=== PATIENT | female | born 1980 | race Caucasian/White ===

== ENCOUNTER 2017-03-09 17:40 | Inpatient (IN) | payer OTHER ==
[2017-03-09] MEDS ORDERED: SODIUM CHLORIDE 0.9% 500 ML IV STA (19:11)
[2017-03-09 19:53] LABS: Basophils # (A) 0.1 k/uL (0-0.2); Basophils % (A) 0 %; CH 31.9; CHCM 36.9; Eosinophils # (A) 0.2 k/uL (0-0.7); Eosinophils % (A) 1 %; HCT 41.5 % (34.0-46.0); HDW 2.97; HGB 14.5 gm/dL (11.4-16.0); Luc # (Auto) 0.11; Luc % (Auto) 1; Lymphocytes # (A) 2.2 k/uL (1.0-4.8); Lymphocytes % (A) 13 %; MCH 30.4 pg (25.0-35.0); MCHC 34.9 g/dL (31.0-37.0); Mean Platelet Volume 7.1; Monocytes # (A) 0.5 k/uL (0-1.0); Monocytes % (A) 3 %; Neutrophils # (A) 14.7 k/uL (1.3-7.7); Neutrophils % (A) 83 %; RBC 4.77 m/uL (3.80-5.40); RDW 14.1 % (11.5-15.5); WBC 17.8 k/uL (3.8-10.6); WBC (Perox) 18.12
[2017-03-09 20:02] LABS: Partial Thromboplastin Time 24.3 sec (22.0-30.0)
[2017-03-09 20:03] LABS: ALT 34 U/L (9-52); AST 22 U/L (14-36); Alkaline Phosphatase 82 U/L (38-126); Anion Gap 15 mmol/L; Blood Urea Nitrogen 13 mg/dL (7-17); Calcium 9.6 mg/dL (8.4-10.2); Carbon Dioxide 22 mmol/L (22-30); Chloride 101 mmol/L (98-107); Glucose 94 mg/dL (74-99); Non-African American GFR(MDRD) >60 (>60 ml/min/1.73 sqM); Potassium 4.3 mmol/L (3.5-5.1); Sodium 138 mmol/L (137-145); Total Bilirubin 0.4 mg/dL (0.2-1.3); Total Protein 7.7 g/dL (6.3-8.2)
[2017-03-09 20:07] LABS: Creatine Kinase 23 U/L (30-135)
[2017-03-09 20:20] LABS: Creatine Kinase MB 0.4 ng/mL (0.0-2.4); Troponin I <0.012 ng/mL (0.000-0.034)
--- NOTE | 2017-03-09 20:31 | CT ---
EXAMINATION TYPE: CT brain wo con DATE OF EXAM: 03/09/2017 COMPARISON: NONE HISTORY: Left sided numbness. CT DLP: 1171.00 mGycm. Automated Exposure Control for Dose Reduction was Utilized. TECHNIQUE: CT scan of the head is performed without contrast. FINDINGS: Ventricles have normal size. There is no mass effect nor midline shift. There is no sign of intracranial hemorrhage. The calvarium appears intact. CONCLUSION: Normal unenhanced head CT scan.
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
[2017-03-09] MEDS ORDERED: NALOXONE 0.4 MG/ML 1 ML VIAL IV PRN (21:00)
[2017-03-09] MEDS: SODIUM CHLORIDE 0.9% 1,000 ML IV SCH (21:15)
[2017-03-09 22:30] VITALS: BMI 43.7
[2017-03-09 22:36] LABS: Hemoglobin A1C 4.8 % (4.2-6.1)
[2017-03-10] MEDS: IBUPROFEN 800 MG TAB PO PRN ×3 (00:04→18:12)
[2017-03-10] MEDS: METHOCARBAMOL 750 MG TAB PO PRN ×2 (01:02→21:02)
[2017-03-10 08:35] LABS: Glucose,Whole Blood 118 mg/dL (75-99)
[2017-03-10] MEDS: INSULIN LISPRO (humaLOG) 300 UNIT/3 ML VIAL SQ SCH ×4 (08:45→21:37)
[2017-03-10] MEDS: metFORMIN 500 MG TAB PO SCH ×2 (10:14→21:43)
[2017-03-10] MEDS: GABAPENTIN 300 MG CAP PO SCH ×2 (10:15→21:37)
[2017-03-10] MEDS: ENOXAPARIN 40 MG/0.4 ML SYRINGE SQ SCH (10:17)
[2017-03-10 12:13] LABS: Glucose,Whole Blood 85 mg/dL (75-99)
[2017-03-10] MEDS ORDERED: NON-FORMULARY DRUG (Dextroamphetamine/Amphetamine [Adderall] 20 MG) PO SCH (12:45)
--- NOTE | 2017-03-10 13:38 | XR ---
Cervical spine HISTORY: Neck and arm pain, left hemiparesis 5 views of the spine No comparisons There is no evident foraminal encroachment. Spondylosis is present at C5-6 with associated loss of di sc height, minimal retrolisthesis grade 1 C5-6, anterolisthesis grade 1 C4-5. Prevertebral soft tissu es are normal. IMPRESSION: Degenerative disc disease. Consider cervical MRI.
--- NOTE | 2017-03-10 13:40 | CT ---
EXAMINATION TYPE: CT cervical spine wo con DATE OF EXAM: 03/10/2017 COMPARISON: NONE HISTORY: 37-year-old female left-sided weakness and prior neck injury TECHNIQUE: Contiguous axial scanning of the spine without IV contrast. Coronal and sagittal reconstru ctions performed. CT DLP: 639.5 mGycm Automated exposure control for dose reduction was used. FINDINGS: There is or reversal of the normal cervical lordosis but with preserved alignment. No craniocervical junction abnormality, predental space widening, or prevertebral soft tissue swellin g. Degenerative disc disease with disc osteophyte complex formation, disc space narrowing at C5-C6 and C 6-C7. Corresponding uncovertebral joint arthropathy at this level. At C5-C6, changes result in mild spinal canal stenosis with superimposed left paracentral disc protru shalini. This probably abuts the ventral cord. Assessment of the spinal canal from C6-C7 and below limited due to artifact from patient's shoulders. No significant neuroforaminal stenosis. IMPRESSION: 1. DEGENERATIVE DISC DISEASE AND UNCOVERTEBRAL JOINT ARTHROPATHY AT C5-C6 AND C6-C7. 2. REVERSAL OF THE NORMAL CERVICAL LORDOSIS HERE WITHOUT MALALIGNMENT. 3. SUPERIMPOSED LEFT PARACENTRAL DISC HERNIATION AT C5-C6 CAUSES MILD SPINAL CANAL STENOSIS AND PROBA LINDA ABUTS THE VENTRAL CORD. 4. NO SIGNIFICANT NEURAL FORAMINAL STENOSIS.
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
[2017-03-10 16:56] LABS: Glucose,Whole Blood 90 mg/dL (75-99)
[2017-03-10] MEDS: ASPIRIN 81 MG PO SCH (18:32)
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
--- NOTE | 2017-03-10 20:21 | US ---
EXAMINATION TYPE: US carotid duplex BILAT DATE OF EXAM: 03/10/2017 COMPARISON: NONE CLINICAL HISTORY: Left-sided numbness. EXAM MEASUREMENTS: RIGHT: Peak Systolic Velocity (PSV) cm/sec ----- Right CCA: 71.1 ----- Right ICA: 79.8 ----- Right ECA: 66.7 ICA/CCA ratio: 1.1 RIGHT: End Diastole cm/sec ----- Right CCA: 20.2 ----- Right ICA: 21.7 ----- Right ECA: 8.6 LEFT: Peak Systolic Velocity (PSV) cm/sec ----- Left CCA: 79.0 ----- Left ICA: 101.6 ----- Left ECA: 106.4 ICA/CCA ratio: 1.3 LEFT: End Diastole cm/sec ----- Left CCA: 16.0 ----- Left ICA: 49.9 ----- Left ECA: 11.1 VERTEBRALS (direction of flow): Right Vertebral: Antegrade Left Vertebral: Antegrade No significant stenosis visualized IMPRESSION: There is antegrade flow in the vertebral arteries. The images and measurements suggest c lose to 0% stenosis in both internal carotid arteries. Criteria for Assigning % of Stenosis / Diameter reduction (Estimation based on the indirect measurements of the internal carotid artery velocities (ICA PSV). 1. Normal (no stenosis)=ICA PSV < 125 cm/s: ratio < 2.0: ICA EDV<40 cm/s. 2. Less than 50% stenosis=ICA PSV < 125 cm/s: ratio < 2.0: ICA EDV<40 cm/s. 3. 50 to 69% stenosis=ICA PSV of 125 to 230 cm/s: ration 2.0 ? 4.0: ICA EDV 40-100 cm/s. 4. Greater than 70% stenosis to near occlusion= ICA PSV > 230 cm/s: ratio > 4.0: ICA EDV > 100 cm/s. 5. Near occlusion= ICA PSV velocities may be low or undetectable: variable ratio and ICA EDV. 6. Total occlusion=unable to detect flow.
[2017-03-10 21:22] LABS: Glucose,Whole Blood 90 mg/dL (75-99)
[2017-03-10] MEDS ORDERED: HYDROcodone/APAP 5-325MG 1 EACH TAB PO STA (21:31)
[2017-03-10 23:59] VITALS: RESP 18
[2017-03-11] MEDS: SODIUM CHLORIDE 0.9% 1,000 ML IV SCH (00:41)
[2017-03-11] MEDS ORDERED: HYDROcodone/APAP 5-325MG 1 EACH TAB PO PRN (06:18)
[2017-03-11] MEDS ORDERED: LORazepam 1 MG TAB PO STA (07:12)
[2017-03-11 07:16] LABS: Glucose,Whole Blood 85 mg/dL (75-99)
[2017-03-11] MEDS: INSULIN LISPRO (humaLOG) 300 UNIT/3 ML VIAL SQ SCH ×3 (09:08→17:11)
[2017-03-11] MEDS: ENOXAPARIN 40 MG/0.4 ML SYRINGE SQ SCH (09:12)
[2017-03-11] MEDS: ASPIRIN 81 MG PO SCH (09:12)
[2017-03-11] MEDS: metFORMIN 500 MG TAB PO SCH (09:13)
[2017-03-11] MEDS: GABAPENTIN 300 MG CAP PO SCH (09:13)
--- NOTE | 2017-03-11 09:30 | MR ---
EXAMINATION TYPE: MR brain/cspine wo DATE OF EXAM: 03/11/2017 COMPARISON: CT 03/09/2017 and 03/10/2017 HISTORY: 37-year-old female with left-sided numbness TECHNIQUE: Multiplanar, multisequence images of the brain and brainstem were acquired without IV con trast. Diffusion weighted imaging is performed. Subsequently, multiplanar, multisequence images of th e cervical spine are obtained. FINDINGS: BRAIN: No evidence for acute infarction, hemorrhage, mass, mass effect, midline shift, herniation, effacemen t of basal cisterns, or extra-axial fluid collection. The ventricles and sulci are age-appropriate. Major intracranial flow voids are intact. T2/FLAIR weighted sequences show a nonspecific punctate 3 mm focus of bright signal in the inferior s ubcortical right frontal lobe, axial image 15. Post contrast images demonstrate no evidence of pathologic enhancement. Dural venous sinuses are pat ent. Small polyp or mucosal retention cyst along the floor of the right maxillary sinus. Leftward nasal se ptal deviation. Globes appear intact. CERVICAL SPINE: No craniocervical junction abnormality, predental space widening, or prevertebral soft tissue swellin g. No suspicious bone marrow replacement. Reversal of the normal cervical lordosis with preserved alignment. There is mild multilevel degenerative disc disease with variable mild disc desiccation and posterior disc bulging. Scattered mild facet and uncovertebral joint arthropathy is also present. At C2-C3, mild uncovertebral joint and facet degenerative change without canal or foraminal stenosis. At C3-C4, mild facet and uncovertebral joint degenerative change without significant canal or foramin al stenosis. At C4-C5, similar mild degenerative changes are present without significant canal or foraminal stenos is. At C5-C6, mild facet arthropathy and mild uncovertebral joint spurring. There is a diffuse disc bulge with extension into the ventral spinal canal causing mild overall spinal canal stenosis with abutmen t and slight flattening of the ventral cord. No uzma cord compression. At C6-C7, mild uncovertebral joint and facet arthropathy and mild posterior disc bulge. This minimall y narrows the spinal canal. No significant neuroforaminal stenosis. At C7-T1, mild facet arthropathy without canal or foraminal stenosis. In addition, at T3-T4, there is a right paracentral disc protrusion which appears to abut the right l ateral ventral cord, sagittal image 7. No spinal canal stenosis or neuroforaminal stenosis. No T2 weighted cord signal abnormality seen. No prevertebral or paravertebral soft tissue abnormality identified. COMBINED IMPRESSION: BRAIN: 1. A solitary punctate 3 mm bright signal focus in the subcortical right frontal lobe is of questiona ble clinical significance. If concern for early demyelinating process, follow-up can be performed. 2. Otherwise, no intracranial abnormality seen. CERVICAL SPINE: 1. Multilevel degenerative disc disease along with mild facet and uncovertebral joint arthropathy. 2. Diffuse bulging disc at C5-C6 contributes to a mild spinal canal stenosis with disc abutting and s lightly flattening the ventral cord at this level. No uzma cord compression. 3. No significant neural foraminal stenosis seen. 4. Apparent right paracentral disc protrusion at T3-T4 abutting the right lateral ventral cord withou t uzma canal compromise.
[2017-03-11 09:41] LABS: Cholesterol 150 mg/dL (<200); HDL Cholesterol 40 mg/dL (40-60)
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
--- NOTE | 2017-03-11 11:18 | ECHOF ---
Referral Reason:Left-sided numbness MEASUREMENTS -------- HEIGHT: 165.1 cm WEIGHT: 119.3 kg BP: IVSd: 1.0 cm (0.6 - 1.1) LVIDd: 4.4 cm (3.9 - 5.3) LVPWd: 1.0 cm (0.6 - 1.1) IVSs: 1.4 cm LVIDs: 2.9 cm LVPWs: 1.5 cm Ao Diam: 2.9 cm (2.0 - 3.7) AV Cusp: 1.8 cm (1.5 - 2.6) LA Diam: 3.5 cm (2.7 - 3.8) MV EXCURSION: 11.800 mm (> 18.000) MV EF SLOPE: 71 mm/s (70 - 150) EPSS: 0.6 cm MV E Usman: 0.88 m/s MV DecT: 126 ms MV A Usman: 0.90 m/s MV E/A Ratio: 0.97 RAP: 5.00 mmHg RVSP: 9.86 mmHg FINDINGS -------- Sinus rhythm. This was a technically good study. The left ventricular size is normal. Left ventricular wall thickness is normal. Overall left ventricular systolic function is normal with, an EF between 55 - 60 %. The right ventricle is normal in size and function. The left atrium is normal in size. The right atrium is normal in size. The aortic valve is trileaflet, and appears structurally normal. No aortic stenosis or regurgitation. The mitral valve leaflets are mildly thickened. There is trace mitral regurgitation. Trace tricuspid regurgitation present. The right ventricular systolic pressure, as measured by Doppler, is 9.86mmHg. Pulmonic valve appears structurally normal. The aortic root size is normal. The pericardium is normal. CONCLUSIONS -------- 1. Sinus rhythm. 2. The mitral valve leaflets are mildly thickened. 3. There is trace mitral regurgitation. 4. Trace tricuspid regurgitation present. 5. The right ventricular systolic pressure, as measured by Doppler, is 9.86mmHg. 6. Pulmonic valve appears structurally normal. 7. The aortic root size is normal. 8. The pericardium is normal. 9. This was a technically good study. 10. The left ventricular size is normal. 11. Left ventricular wall thickness is normal. 12. Overall left ventricular systolic function is normal with, an EF between 55 - 60 %. 13. The right ventricle is normal in size and function. 14. The left atrium is normal in size. 15. The right atrium is normal in size. 16. The aortic valve is trileaflet, and appears structurally normal. No aortic stenosis or regurgitation. LEATHER SOFTENER: Danae Tyson RDCS
[2017-03-11 12:35] LABS: Glucose,Whole Blood 94 mg/dL (75-99)
[2017-03-11 17:14] LABS: Glucose,Whole Blood 91 mg/dL (75-99)
[2017-03-11 19:20] VITALS: BP 155/99; PULSE 97; TEMP 97.9
[2017-03-12] MEDS ORDERED: predniSONE 20 MG TAB PO SCH (09:00)
== END 2017-03-11 18:43 | disposition home or self-care (01) | DRG 552 ==
LOC: EC 17:40 → 4MS4W 21:06
PROVIDERS: ADMIT Hospitalist; ATTEND Hospitalist
DX: M50.122 Cervical disc disorder at C5-C6 level with radiculopathy (principal); G81.90 Hemiplegia, unspecified affecting unspecified side; Z68.41 Body mass index [BMI] 40.0-44.9, adult; E66.01 Morbid (severe) obesity due to excess calories; E28.2 Polycystic ovarian syndrome; F90.9 Attention-deficit hyperactivity disorder, unspecified type; E04.1 Nontoxic single thyroid nodule; E11.9 Type 2 diabetes mellitus without complications; R20.0 Anesthesia of skin; Z79.899 Other long term (current) drug therapy; Z79.84 Long term (current) use of oral hypoglycemic drugs; Z80.1 Family history of malignant neoplasm of trachea, bronchus and lung; Z87.891 Personal history of nicotine dependence
CPT/HCPCS: 36415; 70450; 70551; 72050; 72125; 72141; 80053; 80061; 82550; 82553; 83036; 84484; 85025; 85610; 85730; 93005; 93306; 93880; 96360; 99285

== ENCOUNTER 2017-08-17 09:11 | Day surgery (SDC) | payer OTHER ==
[2017-08-12 08:52] VITALS: BMI 42.4
[~2017-08-17 09:11] MED LIST: LACTATED RINGERS 1,000 ML IV ONE
[2017-08-17 10:41] VITALS: RESP 16; TEMP 98.1
[2017-08-17] MEDS ORDERED: LIDOCAINE 1% 20 ML VIAL (10MG/ML) FOR IV START INTRADERMA ONE (10:41)
--- NOTE | 2017-08-17 11:00 | P.PCN ---
Date of Procedure: 08/17/17 Procedure(s) Performed: Preoperative diagnosis: Multiple sclerosis Post operative diagnoses: Multiple sclerosis Anesthesia local infiltration with lidocaine 1% 2 mL. ,and moderate sedation with IV Versed 2 mg and fentanyl 100 g Condition: stable Complication: none. Description of the procedure procedure risk and benefits discussed with the patient and family, consent signed. Patient and the procedure area placed in lateral position back prepped with chlorhexidine 3 times been local infiltration of the skin and subcutaneous tissue with lidocaine 1% 2 mL for skin and subcu interstitial frustrations at L4 5 levels then 22-gauge 5 inches long ,Quincke-type needle advanced slowly , at L4- 5 interlaminar space there was positive cerebrospinal fluid which was clear, no heme, no paresthesia , total of 9 ML of clear cerebrospinal fluid collected in 4 different tubes 2-2- 1/2 mL in each, then the needle removed and a Band-Aid applied and patient tolerated the procedure well without any complications.
[2017-08-17] MEDS ORDERED: IV FLUID CONTINUATION 1,000 ML IV ONE (11:31)
[2017-08-17 11:36] VITALS: BP 129/80; PULSE 89
[2017-08-17 13:20] LABS: T4, Free (Free Thyroxine) 0.81 ng/dL (0.78-2.19)
[2017-08-17 13:31] LABS: Glucose,CSF 56 mg/dL (40-70); Total Protein,CSF 36 mg/dL (12-60)
[2017-08-17 14:36] LABS: Appearance,CSF Clear; CSF Tube Number 4; Red Blood Cell,CSF 0 u/L (0-10)
[2017-08-17 14:37] LABS: Nucleated Cells, CSF 1 u/L (0-5)
[2017-08-17 17:19] LABS: Rheumatoid Factor <4 IU/mL (0-15)
[2017-08-17 17:21] LABS: Anti-DNA, DS unit <1.0 IU/mL; DNA Double-Stranded NEGATIVE (NEGATIVE); RNP 0.2 AI
[2017-08-18 03:54] LABS: Angiotensin-1 Converting Enz. 32 U/L (8-52)
[2017-08-18 14:40] LABS: IgG - CSF 1.5 mg/dL (0.0 - 3.4); IgG/Albumin Index (CSF) 0.44 (0.00 - 0.77)
[2017-08-19 09:07] LABS: VDRL, Qualitative CSF Nonreactive (Nonreactive)
[2017-08-20 09:14] LABS: Lyme IgG/IgM 0.1 Index
== END 2017-08-17 12:03 | disposition home or self-care (01) ==
LOC: ORPAIN 09:11
PROVIDERS: ATTEND Specialist
DX: G35 Multiple sclerosis (principal); Z91.09 Other allergy status, other than to drugs and biological substances
CPT/HCPCS: 81025; 87476; 86592; 86235 ×3; 84439; 88108; 84157; 82945; 82040; 82042; 82784; 83916; 82164 ×2; 83873; 84443; 84450; 84460; 86431; 89050; 86618; 86780; 86038; 86225; 62270; J2250; J2001; J3010; 85613; 85730

== ENCOUNTER → 2017-08-19 | Day surgery (SDC) | payer OTHER ==
[~2017-08-19] MED LIST changes: -LACTATED RINGERS 1,000 ML IV ONE; +LACTATED RINGERS 1,000 ML IV SCH; +MIDAZOLAM 2 MG/2 ML VIAL IVP NR; +SODIUM CHLORIDE 0.9% 500 ML in EMPTY BAG 1 BAG IV PRN; +fentaNYL (PF) 50 MCG/ML 2 ML AMP IVP NR; +fentaNYL (PF) 50 MCG/ML 5 ML AMP IVP NR
[2017-08-19 12:30] VITALS: PULSE 92; RESP 16; TEMP 98.3
--- NOTE | 2017-08-19 13:21 | P.PCN ---
Date of Procedure: 08/19/17 Procedure(s) Performed: Operation= epidural blood patch. preoperative diagnosis= post dural puncture headache. Post operative diagnoses= post dural puncture headache. Anesthesia= moderate sedation with Versed 2 mg ,and fentanyl 100 g ,and local infiltration with lidocaine 1% 3 mL. Condition= stable. Complications= none. Indication for the procedure= this patient had diagnostic lumbar puncture done 2 days ago, for diagnostic purpose, the yesterday , patient started complaining of severe positional headache, improved with the supine position and increased with the sitting and standing position, and she is diagnosed with post dural puncture headache, there is no focal neurological deficit, no fever, , and no neck stiffness, patient is a good candidate to have epidural blood patch, because the conservative treatment failed, risks and benefits of the procedure discussed with the patient and agreed with proceeding, Description of the procedure= patient in sitting position, back lumbar area prepped with chlorhexidine x3 times then the back draped , then L5 S1 interlaminar space local infiltration of the skin and subcu tissues with lidocaine 1% 3 mL, then 18-gauge Tuohy needle, advanced at the L5-S1 interlaminar space, as positive loss of resistance to normal saline, was no heme and no paresthesia, no cerebrospinal fluid, then after that 18 mL of autologous blood taken under strict sterile technique from the right antecubital area was prepped with the chlorhexidine 3 times, and using Angiocath 20 ML of the block taken from the antecubital vein under strict sterile technique injected in the epidural space after negative aspiration for heme or cerebrospinal fluid, and there was no paresthesia, and after 18 ML of the blood injected in the epidural space and headache improved, and patient tolerated the procedure well without any complication and patient discharged home after discharge criteria met .
[2017-08-19 15:24] VITALS: BP 123/64
== END ==
LOC: PROCWHC3 11:59
PROVIDERS: ATTEND Specialist
DX: G97.1 Other reaction to spinal and lumbar puncture (principal)
CPT/HCPCS: 96360; 96374; 96375; 62273; J2250; J3010

== ENCOUNTER → 2018-12-23 | Outpatient (CLI) | payer OTHER ==
--- NOTE | 2018-12-25 12:40 | MR ---
EXAMINATION TYPE: MR brain/cspine wo/w DATE OF EXAM: 12/23/2018 COMPARISON: 03/11/2017 HISTORY: MS, recent right eye vision loss TECHNIQUE: Multiplanar, multisequence images of the brain, brainstem and cervical spine is performed without and with IV contrast, utilizing 12 mL intravenous Gadavist . FINDINGS: BRAIN: Diffusion weighted images demonstrate no evidence of a recent infarct or other diffusion abnor mality. There is no extra-axial fluid collection. Given slice selection the previously seen 3 mm focus of white matter change within the right frontal subcortical white matter seen on the prior exam of 03/11/2017 definitively is not visualized. A solita ry new punctate 3 mm periventricular focus is seen on the right and axial FLAIR fat-sat image 20. The ventricular system and cisternal spaces are normal in size and appearance. The brain volume is a ge appropriate. Midline structures demonstrate normal morphology. The craniocervical junction appears within normal limits. The dural venous sinuses appear patent. The visualized sinuses are clear and the globes are i ntact. Again there is leftward nasal septal deviation. Unchanged maxillary polyps or mucosal retentio n cysts, one within each maxillary sinus. There is very subtle enhancement of the both optic nerves, right greater than left. No other abnormal intracranial enhancement is seen. CERVICAL SPINE: Vertebral body heights of the cervical spine are maintained as is alignment. Multilevel disc desiccat ion is seen. No abnormal signal is seen of the spinal cord. No abnormal enhancement of the spinal cor d or of the cervical spine. Bone marrow signal is within normal limits. C2-C3: Mild uncovertebral hypertrophy and facet arthropathy are seen as well as a small posterior dis c osteophyte complex without significant neural foraminal narrowing or spinal canal stenosis. C3-C4: Mild facet arthropathy and uncovertebral hypertrophy as well as a broad-based disc bulge resul ting in minimal bilateral neural foraminal narrowing without spinal canal stenosis. C4-C5: Small central disc osteophyte complex, uncovertebral hypertrophy and facet arthropathy result in minimal bilateral neural foraminal narrowing and slight narrowing of the ventral subarachnoid spac e without significant spinal canal stenosis. C5-C6: There is a small central disc herniation superimposed on a broad-based disc bulge examination with facet arthropathy and ligamentum flavum buckling creating mild spinal canal stenosis and mild bi lateral neural foraminal narrowing. Findings have progressed from the prior. C6-C7: There is a broad-based disc bulge and uncovertebral hypertrophy as well as minimal facet arthr opathy creating mild bilateral neural foraminal narrowing and mild spinal canal stenosis. C7-T1: No significant disc disease, spinal canal stenosis or neural foraminal narrowing. Mild facet a rthropathy. IMPRESSION: 1. Solitary new white matter change in the right periventricular region without abnormal enhancement to suggest active demyelination. 2. Nonvisualization of the previously seen right frontal white matter change secondary to small size and slice selection on the current exam. This was a definitive finding on the prior. 3. No abnormal signal or enhancement of the spinal cord. 4. Progression of degenerative disc disease throughout the cervical spine, overall mild in degree wit h a new small central disc herniation at C5-C6 creating mild spinal canal stenosis. Degenerative disc disease at C6-C7 also creates mild spinal canal stenosis.
== END | disposition home or self-care (01) ==
LOC: RADMRIMAIN 16:39
PROVIDERS: ATTEND Psychiatry & Neurology Neurology
DX: M48.02 Spinal stenosis, cervical region (principal); M50.222 Other cervical disc displacement at C5-C6 level; M50.323 Other cervical disc degeneration at C6-C7 level; G35 Multiple sclerosis; R90.89 Other abnormal findings on diagnostic imaging of central nervous system
CPT/HCPCS: 70553; 72156; A9585

== ENCOUNTER → 2019-12-26 | Outpatient (CLI) | payer OTHER ==
--- NOTE | 2019-12-26 18:58 | MR ---
EXAMINATION TYPE: MR brain wo/w con DATE OF EXAM: 12/26/2019 COMPARISON: 03/11/2017 and 12/15/2018 HISTORY: 39-year-old female with left side weakness, double vision, R/O MS, compare to prior MR 2019 TECHNIQUE: Multiplanar, multisequence images of the brain and brainstem is performed without and with utilizing 11.5 mL intravenous Gadavist gadolinium contrast. Demyelinating disease protocol with add itional Sagittal Flair sequence performed. FINDINGS: T2 Lesions Present : Yes Approximate Number of Lesions: 2 in the right cerebral hemisphere Locations Identified : Right petersen radiata and subcortical inferior right frontal lobe Size of Reference Lesion(s): 1. 4 mm inferior subcortical right frontal lobe, axial image 14 and sagittal image 24. 2. 4 mm right petersen radiata, axial image 18 and sagittal image 25 Enhancing Lesion(s) Present: No T1 Hypointense Lesion(s) Present: No Change from Prior: No change as compared to 03/11/2017 Diffusion weighted images demonstrate no evidence of a recent infarct or other diffusion abnormality. There is no worrisome extra-axial fluid collection. The ventricular system and cisternal spaces ar e normal in size and appearance. The brain volume is age appropriate. Midline structures demonstrate normal morphology. The craniocervical junction appears within normal limits. Post contrast images demonstrate no abnormal enhancement. The dural venous sinuses appear pa tent. Moderate mucosal thickening right maxillary sinus and mild within the ethmoid air cells. Leftward gala al septal deviation. Globes appear intact. IMPRESSION: 1. Two 4 mm foci of bright white matter change in the right cerebral hemisphere are stable back to . The 2019 exam is limited due to motion artifact and has some technical differences in slice selection. No new white matter signal changes or enhancing lesion seen. 2. Moderate chronic right maxillary sinus disease.
== END | disposition home or self-care (01) ==
LOC: RADMRIMAIN 17:40
PROVIDERS: ATTEND Psychiatry & Neurology Neurology
DX: R90.89 Other abnormal findings on diagnostic imaging of central nervous system (principal); G35 Multiple sclerosis
CPT/HCPCS: 70553; A9585

== ENCOUNTER → 2020-11-06 | Outpatient (CLI) | payer OTHER ==
--- NOTE | 2020-11-07 05:13 | MR ---
EXAMINATION TYPE: MR thoracic spine wo/w con DATE OF EXAM: 11/06/2020 COMPARISON: None HISTORY: MS follow up, numb left side, drop foot, double vision, mid back pain. CONTRAST: Standard multiplanar, multisequence MRI departmental protocol utilizing 12 mL intravenous Gadavist ga dolinium contrast. Thoracic vertebra have normal alignment. There is no compression fracture. I see no bony destructive process. Thoracic spinal cord has fairly normal signal pattern. There is no evidence of a mass. There is no pathologic enhancement. There is no evidence of spinal stenosis. I see no significant thoracic disc herniation. There is no paraspinal mass. IMPRESSION: No significant abnormality. No evidence of demyelinating disease of the thoracic spinal cord.
--- NOTE | 2020-11-07 05:24 | MR ---
EXAMINATION TYPE: MR brain/cspine wo/w DATE OF EXAM: 11/06/2020 COMPARISON: 12/15/2018 HISTORY: MS follow up, numb left side, drop foot, double vision. CONTRAST: Standard multiplanar, multisequence MRI departmental protocol utilizing 12ml mL intravenous Gadavist gadolinium contrast. Multiplanar multiecho imaging of the brain and cervical spine was performed without and with IV contr ast. Diffusion images show no evidence of an acute infarct. There is no mass effect nor midline shift. The re is no evidence of cerebral edema. Childers-white matter structures have fairly normal signal pattern. Brainstem is intact. Corpus callosum appears normal. Sella turcica is normal. There is no evidence of posterior fossa mass. The contrast images of the brain show no pathologic enhancement. There is norm al enhancement of the venous sinuses. The cervical vertebra have normal alignment. There is some posterior spurring and disc bulging from 4 to C7. There is narrowing of the spinal canal to 7 mm at C5-6 which is the narrowest point. Cervical spinal cord shows fairly normal signal pattern. There is no edema. The contrast images show no patho logic cervical cord enhancement. I see no bony destructive process. There is no evidence of cervical spine fracture. IMPRESSION: Spondylotic changes in the cervical spine with a mild 7 mm relative spinal stenosis at C5-6 without c hange. No evidence of demyelinating disease in the cervical spinal cord. Exam fails to show convincing evidence of demyelinating disease in the brain. No adverse change beena red to old exam.
== END | disposition home or self-care (01) ==
LOC: RADMRIMAIN 20:19
PROVIDERS: ATTEND Psychiatry & Neurology Neurology
DX: M48.02 Spinal stenosis, cervical region (principal); H53.2 Diplopia; M54.6 Pain in thoracic spine
CPT/HCPCS: 70553; 72156; 72157; A9585

== ENCOUNTER 2021-04-21 22:22 | Emergency (ER) | payer OTHER ==
[2021-04-21 22:34] VITALS: TEMP 97.9
[2021-04-21] MEDS ORDERED: cloNIDine HCL 0.2 MG TAB PO STA (22:38)
[2021-04-21] MEDS ORDERED: lisinopriL 10 MG TAB PO STA (23:04)
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
[2021-04-22] MEDS ORDERED: hydrALAZINE HCL 20 MG/ML 1 ML VIAL IVP STA (00:12)
[2021-04-22] MEDS ORDERED: TRANEXAMIC ACID 1,000 MG in SODIUM CHLORIDE 0.9% 100 ML IVPB ONE (00:20)
[2021-04-22 01:32] VITALS: BP 159/94; PULSE 77; RESP 18
== END 2021-04-22 01:33 | disposition home or self-care (01) ==
LOC: EC 22:22
DX: R04.0 Epistaxis (principal); I10 Essential (primary) hypertension; M19.90 Unspecified osteoarthritis, unspecified site; F12.90 Cannabis use, unspecified, uncomplicated; Z79.1 Long term (current) use of non-steroidal anti-inflammatories (NSAID); Z79.82 Long term (current) use of aspirin; Z79.899 Other long term (current) drug therapy; Z80.1 Family history of malignant neoplasm of trachea, bronchus and lung
CPT/HCPCS: 96365; 99283

== ENCOUNTER → 2024-02-25 | Outpatient (CLI) | payer OTHER ==
[2024-02-25 16:29] LABS: Basophils # (A) 0.04 X 10*3/uL (0.00-0.10); Basophils % (A) 0.5 %; Eosinophils # (A) 0.08 X 10*3/uL (0.04-0.35); Eosinophils % (A) 0.9 %; HCT 41.5 % (37.2-46.3); HGB 14.3 g/dL (12.0-15.0); Lymphocytes # (A) 1.92 X 10*3/uL (0.90-5.00); Lymphocytes % (A) 21.7 %; MCH 30.7 pg (27.0-32.0); MCHC 34.5 g/dL (32.0-37.0); MCV 89.1 FL (80.0-97.0); Mean Platelet Volume 9.6 FL (9.5-12.2); Monocytes # (A) 0.38 X 10*3/uL (0.20-1.00); Monocytes % (A) 4.3 %; NRBC Per 100 WBC 0 X 10*3/uL (0.00-0.01); Neutrophils # (A) 6.38 X 10*3/uL (1.80-7.70); Neutrophils % (A) 72.1 %; Platelet Count 319 X 10*3/uL (140-440); RBC 4.66 X 10*6/uL (4.10-5.20); RDW 12.7 % (11.5-14.5); WBC 8.84 X 10*3/uL (4.50-10.00)
[2024-02-25 16:48] LABS: Erythrocyte Sedimentation Rate 13 mm/Hr (0-20)
[2024-02-25 19:15] LABS: ALT 27 U/L (8-44); AST 27 U/L (13-35); Albumin 4.5 g/dL (3.8-4.9); Albumin/Globulin Ratio 1.67 Ratio (1.60-3.17); Alkaline Phosphatase 74 U/L (41-126); BUN/Creat Ratio 19.57 Ratio (12.00-20.00); Blood Urea Nitrogen 13.7 mg/dL (9.0-27.0); Calcium 9.4 mg/dL (8.7-10.3); Carbon Dioxide 23.5 mmol/L (21.6-31.8); Chloride 103 mmol/L (96-109); Chol/HDL Ratio 4.34 Ratio; Estradiol 32.2 pg/mL; Globulin 2.7 g/dL (1.6-3.3); Glucose 105 mg/dL (70-110); LDL Cholesterol,Calculated 107.3 mg/dL (0.0-131.0); Potassium 4.9 mmol/L (3.5-5.5); Sodium 139 mmol/L (135-145); T4, Free (Free Thyroxine) 1.07 ng/dL (0.80-1.80); Total Bilirubin 0.5 mg/dL (0.3-1.2); Total Protein 7.2 g/dL (6.2-8.2)
[2024-02-25 19:54] LABS: Follicle Stimulating Hormone 12.8 mIU/mL; Luteinizing Hormone 6.9 mIU/mL
== END | disposition home or self-care (01) ==
LOC: LABWHC1 11:31
PROVIDERS: ATTEND Nurse Practitioner Family
DX: Z00.01 Encounter for general adult medical examination with abnormal findings (principal); E78.1 Pure hyperglyceridemia; E55.9 Vitamin D deficiency, unspecified; E66.01 Morbid (severe) obesity due to excess calories; G35 Multiple sclerosis; N92.6 Irregular menstruation, unspecified
CPT/HCPCS: 36415; 80053; 80061; 82306; 82670; 83001; 83002; 83036; 84144; 84439; 84443; 85025; 85652; 86140